=== PATIENT | female | born 1975 | race Caucasian/White ===

== ENCOUNTER 2020-12-18 15:42 | Emergency (ER) | payer MEDICAID ==
[~2020-12-18] VITALS: Ht 165.1 cm; Wt 101.2 kg
[2020-12-18 15:53] VITALS: BP_SYST 144
[2020-12-18] MEDS ORDERED: KETOROLAC TROMETHAMINE 60 MG/2 ML VIAL IM ONE (16:00)
[2020-12-18 16:39] LABS: BILIRUBIN,URINE NEGATIVE (NEGATIVE); BLOOD, URINE 1+ (NEGATIVE); CLARITY/URINE CLEAR (CLEAR); COLOR,URINE YELLOW (YELLOW); GLUCOSE,URINE NEGATIVE (NEGATIVE); KETONES,URINE NEGATIVE (NEGATIVE); LEUKOCYTE ESTERASE ,URINE NEGATIVE (NEGATIVE); NITRITE, URINE NEGATIVE (NEGATIVE); PROTEIN URINE NEGATIVE (NEGATIVE); UROBILINOGEN,URINE 0.2 (0.2-1.0)
[2020-12-18 16:48] LABS: BACTERIA,URINE FEW /HPF (None Seen); MUCUS,URINE None Seen /LPF (None Seen); RBC,URINE 0-3 /HPF (0-3); WBC,URINE 0-3 /HPF (0-3)
[2020-12-18] MEDS ORDERED: MORPHINE 4 MG INJ. 4 MG/ML VIAL IM ONE (17:15)
[2020-12-18] MEDS ORDERED: IBUP-1971 PO (17:34)
[2020-12-18] MEDS ORDERED: HYDR-3917 PO (17:34)
[2020-12-18 17:37] VITALS: BP_SYST 136
== END 2020-12-18 17:37 | disposition home or self-care (01) ==
LOC: SED 15:42
DX: M54.5 Low back pain (principal)
CPT/HCPCS: 81000; 96372; 99284; J1885; J2270

== ENCOUNTER 2021-06-13 15:00 | Emergency (ER) | payer MEDICAID ==
[~2021-06-13] VITALS: Ht 165.1 cm; Wt 131.5 kg
[~2021-06-13 15:00] MED LIST: HYDR-3917 PO; IBUP-1971 PO
[2021-06-13 15:12] VITALS: BP_SYST 140
[2021-06-13] MEDS ORDERED: KETOROLAC TROMETHAMINE 60 MG/2 ML VIAL IM ONE (15:30)
[2021-06-13] MEDS ORDERED: HYDR-3917 PO (16:12)
[2021-06-13] MEDS ORDERED: IBUP800T54 PO (16:12)
[2021-06-13 16:25] VITALS: BP_SYST 133
== END 2021-06-13 16:25 | disposition home or self-care (01) ==
LOC: SED 15:00
DX: M54.50 Low back pain, unspecified (principal); Z79.899 Other long term (current) drug therapy
CPT/HCPCS: 81002; 81025; 96372; 99283; J1885

== ENCOUNTER 2021-11-04 09:54 | Emergency (ER) | payer MEDICAID ==
[~2021-11-04] VITALS: Ht 165.1 cm; Wt 104.3 kg
[~2021-11-04 09:54] MED LIST changes: +IBUP800T54 PO
[2021-11-04 09:55] VITALS: BP_SYST 147
[2021-11-04] MEDS ORDERED: KETOROLAC TROMETHAMINE 60 MG/2 ML VIAL IM ONE (10:15)
[2021-11-04] MEDS: HYDROcodone/ACETAMIN 10-325 MG TAB PO ONE ×2 (10:19→11:16)
[2021-11-04] MEDS ORDERED: HYDR-3917 PO (10:59)
[2021-11-04] MEDS ORDERED: IBUP-1969 PO (10:59)
[2021-11-04] MEDS ORDERED: MORPHINE 4 MG INJ. 4 MG/ML VIAL IM ONE (11:00)
[2021-11-04 11:19] VITALS: BP_SYST 147
== END 2021-11-04 11:21 | disposition home or self-care (01) ==
LOC: SED 09:54
DX: G89.29 Other chronic pain (principal); M54.9 Dorsalgia, unspecified
CPT/HCPCS: 81002; 96372; 99284; J1885; J2270; 81025

== ENCOUNTER 2021-11-11 07:43 | Emergency (ER) | payer MEDICAID, SELFPAY ==
[~2021-11-11] VITALS: Ht 165.1 cm; Wt 104.3 kg
[2021-11-11 07:43] VITALS: BP_SYST 170
[~2021-11-11 07:43] MED LIST changes: +IBUP-1969 PO
--- NOTE | 2021-11-11 07:43 | NUR ---
BROUGHT BACK TO BED #6 AND TRIAGED. REPORT GIVEN TO TATUM
--- NOTE | 2021-11-11 07:50 | NUR ---
RECEIVED PATIENT IN BED #6, FROM HOME WITH CC OF COUGH FOR THE PAST FEW DAYS AFTER HAVING COVID BOOSTER SHOT. PT IS STABLE, NAD, VSS, AAOx3, LUNG SOUNDS CLEAR BILATERALLY, AWAITING ED MD FOR EVALUATION.
--- NOTE | 2021-11-11 07:55 | NUR ---
ED MD AT BEDSIDE FOR ASSESSMENTS.
[2021-11-11] MEDS ORDERED: BENZONATATE 100 MG CAPSULE (TESSALON) PO ONE (08:15)
[2021-11-11] MEDS ORDERED: IBUPROFEN 800 MG TABLET PO ONE (08:15)
--- NOTE | 2021-11-11 09:13 | NUR ---
SPOKE WITH PATIENT AND STATES SHE SAID SHE IS STARTING TO FEEL MUCH BETTER. ED MD NOTIFIED, RESULTS NEGATIVE FOR BOTH COVID AND STREP. DISPOSITION PENDING.
[2021-11-11] MEDS ORDERED: BENZ100C92 PO (09:27)
[2021-11-11] MEDS ORDERED: IBUP-1969 PO (09:27)
--- NOTE | 2021-11-11 09:33 | NUR ---
Patient given written and verbal discharge instructions and verbalizes understanding. ER MD discussed with patient the results and treatment provided. Patient in stable condition. ID arm band removed. I Rx of given. Patient educated on pain management and to follow up with PMD. Opportunity for questions provided and answered. Medication side effect fact sheet provided.
== END 2021-11-11 09:33 | disposition home or self-care (01) ==
LOC: SED 07:43
DX: J02.8 Acute pharyngitis due to other specified organisms (principal); B97.89 Other viral agents as the cause of diseases classified elsewhere; Z79.899 Other long term (current) drug therapy; Z20.822 Contact with and (suspected) exposure to COVID-19
CPT/HCPCS: 36415; 86403; 87081; 99283

== ENCOUNTER 2021-12-19 09:41 | Emergency (ER) | payer MEDICAID ==
[~2021-12-19] VITALS: Ht 165.1 cm; Wt 74.8 kg
[~2021-12-19 09:41] MED LIST changes: +BENZ100C92 PO
[2021-12-19 09:44] VITALS: BP_SYST 145
--- NOTE | 2021-12-19 09:44 | NUR ---
Patient to ER bed 4 to gown for evaluation. Side rails up.
--- NOTE | 2021-12-19 09:45 | NUR ---
PT CAME IN FROM HOME C/O CHRONIC SCIATICA PAIN TO RIGHT HIP AND DOWN LEG. STATES SHE IS RUNNING OUT OF RX MEDS AND NEEDS A REFILL. PT IS AMBULATORY, AAOX4, VSS
--- NOTE | 2021-12-19 10:10 | NUR ---
ER at bedside examining patient.
[2021-12-19] MEDS ORDERED: KETOROLAC TROMETHAMINE 60 MG/2 ML VIAL IM ONE (10:30)
[2021-12-19] MEDS ORDERED: NAPR-690 PO (11:46)
--- NOTE | 2021-12-19 11:51 | NUR ---
Patient given written and verbal discharge instructions and verbalizes understanding. discussed with patient the results and treatment provided. Patient in stable condition. ID arm band removed. Rx of Naproxen given. Patient educated on pain management and to follow up with PMD. Pain Scale 6. Opportunity for questions provided and answered. Medication side effect fact sheet provided.
[2021-12-19 11:52] VITALS: BP_SYST 126
== END 2021-12-19 11:51 | disposition home or self-care (01) ==
LOC: SED 09:41
DX: M54.31 Sciatica, right side (principal); Z76.0 Encounter for issue of repeat prescription
CPT/HCPCS: 96372; 99283; J1885